=== PATIENT | female | born 1985 | race Native Hawaiian/Other Pacific Islander ===

== ENCOUNTER 2019-06-15 13:43 | Emergency (ER) | payer OTHER ==
[~2019-06-15] VITALS: Ht 157.5 cm; Wt 53.1 kg
[2019-06-15 13:48] VITALS: TEMP 97.9
[2019-06-15 16:21] VITALS: BP 111/62
== END 2019-06-15 16:21 | disposition home or self-care (01) ==
LOC: ED 13:43
DX: T18.0XXA Foreign body in mouth, initial encounter (principal)
CPT/HCPCS: 99282

== ENCOUNTER 2022-11-30 14:57 | Outpatient (CLI) | payer OTHER | END 2022-11-30 19:23 | disposition home or self-care (01) | LOC: RESP 14:57 → RAD 14:57 | PROVIDERS: ATTEND Internal Medicine | DX: R07.89 Other chest pain (principal); R06.09 Other forms of dyspnea; R00.2 Palpitations; R06.02 Shortness of breath | CPT/HCPCS: 93225 ==

== ENCOUNTER → 2022-12-17 | Outpatient (CLI) | payer OTHER | LOC: RESP 12-14 09:00 | PROVIDERS: ATTEND Internal Medicine | DX: R07.89 Other chest pain (principal); R06.09 Other forms of dyspnea; R53.83 Other fatigue; R00.2 Palpitations; R06.02 Shortness of breath ==